=== PATIENT | female | born 1960 | race Caucasian/White ===

== ENCOUNTER → 2024-05-16 | Outpatient (CLI) | payer BC, SELFPAY | END | disposition home or self-care (01) | PROVIDERS: Referring Provider Physician Assistant; Visit Provider Physician Assistant | DX: R39.9 Unspecified symptoms and signs involving the genitourinary system (principal) | CPT/HCPCS: 87086; 87088; 87186 ==

== ENCOUNTER → 2025-09-02 | Outpatient (CLI) | payer BC, SELFPAY ==
--- OUTSIDE RECORDS SUMMARY | 2025-09-02 19:12 | XMS RPT_ITS | CCD ---
Author Organization [facility] Care Team Providers Care Hepatologist Name Role Phone IRVIN QUEEN DO Primary Care Physician FERDINAND SCALES PA-C Attending UnavailIRVIN De La Rosa DO Primary Care Unavailable IRVIN QUEEN DO Attending Unavailable IRVIN QUEEN DO Primary Care Unavailable IRVIN QUEEN DO Attending Unavailable IRVIN QUEEN DO Primary Care Unavailable Lakeisha PA, Kaleb Attending Unavailable Lakeisha SETH, Kaleb Referring Unavailable Lakeisha SETH, Kaleb Attending Unavailable Lakeisha PA, Kaleb Primary Care Unavailable FERDINAND SCALES PA-C Attending Unavailab IRVIN Jain DO Primary Care Unavailable IRVIN QUEEN DO Attending Unavailable IRVIN QUEEN DO Primary Care Unavailable IRVIN QUEEN DO Attending Unavailable IRVIN QUEEN DO Primary Care Unavailable Allergies Allergy Classification Reported Allergen(s) Allergy Type Date of Onset Reaction(s) Facility (7 sources) Procaine; Translations: [procaine] Drug Allergy [facility] Medications Current Medications Medication Drug Class(es) Dates Sig (Normalized) Sig (Original) naproxen sodium 220 mg oral capsule (3 sources) Nonsteroidal Anti-inflammatory Drug Start: 06-07-2019 Aleve 220 mg oral capsule Dose : 440 mg = 2 cap(s), Oral, Once, 0 Refill(s) Start Date: 06/07/19 Status: Ordered simvastatin 40 mg oral tablet (7 sources) HMG-CoA Reductase Inhibitor Start: 06-08-2024 simvastatin 40 mg oral tablet Dose : 40 mg = 1 tab(s), Oral, qDay, # 90 tab(s), 3 Refill(s), Pharmacy: [facility], 157, cm, 06/08/24 7:58:00 EDT, Height, kg, 06/08/24 7:58:00 EDT, Dosing Weight Start Date: 06/08/24 Status: Ordered Medication Dispense Status: Completed Quantity: 90.0 Unit: tab(s) Total Allowed Fills: 4 Fills Dispensed: 0 Start: 05-07-2022 simvastatin 40 mg oral tablet Dose : 40 mg = 1 tab(s), Oral, qDay, # 90 tab(s), 3 Refill(s), Pharmacy: [facility], 158, cm, 05/07/22 9:24:00 EDT, Height, kg, 05/07/22 9:24:00 EDT, Dosing Weight Start Date: 05/07/22 Status: Ordered Problems Problem Classification Problem Date Documented Date Episodic/Chronic Chronic kidney disease (8 sources) Chronic kidney disease stage 3; Translations: [Chronic kidney disease, stage 3 unspecified] 05-07-2022 Chronic Disorders of lipid metabolism (8 sources) Mixed hyperlipidemia; Translations: [Mixed hyperlipidemia] 05-07-2022 Chronic Genitourinary symptoms and ill-defined conditions (3 sources) Unspecified symptoms and signs involving the genitourinary system; Translations: [Dysuria] Onset: 06-10-2024 Episodic Other nutritional; endocrine; and metabolic disorders (7 sources) Severe obesity 05-07-2022 Chronic Other nutritional; endocrine; and metabolic disorders (1 source) Morbid obesity; Translations: [Morbid (severe) obesity due to excess calories] Chronic Other nutritional; endocrine; and metabolic disorders (6 sources) Body mass index 40+ - severely obese 07-15-2023 Chronic Other screening for suspected conditions (not mental disorders or infectious disease) (4 sources) Cardiac disease monitoring status; Translations: [Encounter for screening for cardiovascular disorders] Episodic Other upper respiratory infections (1 source) Acute upper respiratory infection 09-14-2022 Episodic Unclassified (1 source) Patient encounter status 06-14-2025 Results Test Name Value Interpretation Reference Range Facility No Panel Informationon 06-14 Culture Urine 10,000 - 50,000 cfu/ml Multiple bacterial morphotypes present. Probable Contamination. Suggest recollection if clinically indicated. [facility] .Auto Diffon 06-08-2025 Basophil, Absolute 0.0 10 3/mcL Normal 0.0-0.3 [facility] Comment on above: Performed By: #### C MP, ANEU, LIPID, FT4, TSH, ADIFF, CBC, GFR, A1C, LDLDCT #### [address] [address] Basophils/100 WBC (Bld) 0.9 % Normal 0.0-2.5 [facility] Comment on above: Performed By: #### C MP, ANEU, LIPID, FT4, TSH, ADIFF, CBC, GFR, A1C, LDLDCT #### [address] [address] Eosinophil, Absolute 0.1 10 3/mcL Normal 0.0-0.[address] [facility] Comment on above: Performed By: #### C MP, ANEU, LIPID, FT4, TSH, ADIFF, CBC, GFR, A1C, LDLDCT #### [address] [address] Eosinophils/100 WBC (Bld) 2.1 % Normal 0.0-6.0 [facility] Comment on above: Performed By: #### C MP, ANEU, LIPID, FT4, TSH, ADIFF, CBC, GFR, A1C, LDLDCT #### [address] [address] Lymphocyte, Absolute 1.6 10 3/mcL Normal 0.9-4.[address] [facility] Comment on above: Performed By: #### C MP, ANEU, LIPID, FT4, TSH, ADIFF, CBC, GFR, A1C, LDLDCT #### [address] [address] Lymphocytes/100 WBC (Bld) 36.8 % Normal 20.0-40.0 [facility] Comment on above: Performed By: #### C MP, ANEU, LIPID, FT4, TSH, ADIFF, CBC, GFR, A1C, LDLDCT #### [address] [address] Monocyte, Absolute 0.5 10 3/mcL Normal 0.1-1.4 [facility] Comment on above: Performed By: #### C MP, ANEU, LIPID, FT4, TSH, ADIFF, CBC, GFR, A1C, LDLDCT #### [address] [place], [place] [address] Monocytes/100 WBC (Bld) 10.7 % Normal 2.0-13.0 [facility] Comment on above: Performed By: #### C MP, ANEU, LIPID, FT4, TSH, ADIFF, CBC, GFR, A1C, LDLDCT #### [address] [place], [place] [address] Neutrophils/100 WBC (Bld) 49.5 % Low 50.0-75.0 [facility] Comment on above: Performed By: #### C MP, ANEU, LIPID, FT4, TSH, ADIFF, CBC, GFR, A1C, LDLDCT #### [address] [address] .GFRon 06-08-2025 Estimated Glomerular Filtration Rate 68 ml/min/1.73sqm Normal [facility] Comment on above: Result Comment: Stages of Chronic Kidney Disease (CKD) Stage Description eGFR(ml/min/1.73 sq.m.) CKD 1 Normal kidney function or >=90 normal kindney function with possible kidney damage (ex. Proteinuria) CKD 2 Kidney damage with mild loss 60-89 of kidney function CKD 3a Mild to moderate loss of kidney 45-59 function CKD 3b Moderate to severe loss of 30-44 of kindey function CKD 4 Severe loss of kidney function 15-29 CKD 5 Kidney failure <15 Note: (go live 2024) the eGFR calculation was updated to the 2020 CKD-EPI creatinine equation without a race factor to calculate the eGFR results. Performed By: #### C MP, ANEU, LIPID, FT4, TSH, ADIFF, CBC, GFR, A1C, LDLDCT #### [address] [place], [place] [address] .NEUABSon 06-08-2025 Neutrophil, Absolute 2.2 10 3/mcL Low 2.3-8.[address] [facility] Comment on above: Performed By: #### C MP, ANEU, LIPID, FT4, TSH, ADIFF, CBC, GFR, A1C, LDLDCT #### [address] [place], [place] [address] A1Con 06-08-2025 Glucose [Mass/Vol] 108 mg/dL Normal [facility] Comment on above: Result Comment: Millie mated Average Glucose calculated by equation ((28.7xA1C)-46.7) Estimated average glucose (eAG) is a calculated value from Hemoglobin A1C and is community representative of the average blood glucose level in the last 2-3 month period. Normal range: less than 114 mg/dL Performed By: #### C MP, ANEU, LIPID, FT4, TSH, ADIFF, CBC, GFR, A1C, LDLDCT ####[address] [address] HbA1c (Bld) [Mass fraction] 5.4 % Normal 4.3-6.4 [facility] Comment on above: Performed By: #### C MP, ANEU, LIPID, FT4, TSH, ADIFF, CBC, GFR, A1C, LDLDCT ####[address] [address] CBCon 06-08-2025 Erythrocyte distribution width (RBC) [Ratio] 12.3 % Normal 11.5-15.5 [facility] Comment on above: Performed By: #### C MP, ANEU, LIPID, FT4, TSH, ADIFF, CBC, GFR, A1C, LDLDCT #### [address] [address] Hematocrit (Bld) [Volume fraction] 38.5 % Normal 34.0-46.0 [facility] Comment on above: Performed By: #### C MP, ANEU, LIPID, FT4, TSH, ADIFF, CBC, GFR, A1C, LDLDCT #### [address] [address] Hgb 13.3 G/dL Normal 12.0-16.0 [facility] Comment on above: Performed By: #### C MP, ANEU, LIPID, FT4, TSH, ADIFF, CBC, GFR, A1C, LDLDCT #### [address] [address] MCH (RBC) [Entitic mass] 29.2 pg Normal 27.0-33.0 [facility] Comment on above: Performed By: #### C MP, ANEU, LIPID, FT4, TSH, ADIFF, CBC, GFR, A1C, LDLDCT #### [address] [address] MCHC 34.5 G/dL Normal 32.0-36.0 [facility] Comment on above: Performed By: #### C MP, ANEU, LIPID, FT4, TSH, ADIFF, CBC, GFR, A1C, LDLDCT #### [address] [address] MCV (RBC) [Entitic vol] 84.7 fL Normal 80.0-99.0 [facility] Comment on above: Performed By: #### C MP, ANEU, LIPID, FT4, TSH, ADIFF, CBC, GFR, A1C, LDLDCT #### [address] [address] Platelet 325 10 3/mcL Normal 150-450 [facility] Comment on above: Performed By: #### C MP, ANEU, LIPID, FT4, TSH, ADIFF, CBC, GFR, A1C, LDLDCT #### [address] [address] Platelet mean volume (Bld) [Entitic vol] 8.0 fL Normal 6.6-10.5 [facility] Comment on above: Performed By: #### C MP, ANEU, LIPID, FT4, TSH, ADIFF, CBC, GFR, A1C, LDLDCT #### [address] [address] RBC 4.55 10 6/mcL Normal 4.10-5.30 [facility] Comment on above: Performed By: #### C MP, ANEU, LIPID, FT4, TSH, ADIFF, CBC, GFR, A1C, LDLDCT #### [address] [address] WBC 4.5 10 3/mcL Normal 4.5-10.8 [facility] Comment on above: Performed By: #### C MP, ANEU, LIPID, FT4, TSH, ADIFF, CBC, GFR, A1C, LDLDCT #### [address] [address] CMPon 06-08-2025 Albumin Level 3.6 G/dL Normal 3.4-4.8 [facility] Comment on above: Performed By: #### C MP, ANEU, LIPID, FT4, TSH, ADIFF, CBC, GFR, A1C, LDLDCT #### [address] [address] Albumin/Globulin [Mass ratio] 0.9 {ratio} Low 1.1-2.5 [facility] Comment on above: Performed By: #### C MP, ANEU, LIPID, FT4, TSH, ADIFF, CBC, GFR, A1C, LDLDCT #### [address] [address] ALP [Catalytic activity/Vol] 69 U/L Normal 40-135 [facility] Comment on above: Performed By: #### C MP, ANEU, LIPID, FT4, TSH, ADIFF, CBC, GFR, A1C, LDLDCT #### [address] [address] ALT [Catalytic activity/Vol] 23 U/L Normal 14-59 [facility] Comment on above: Performed By: #### C MP, ANEU, LIPID, FT4, TSH, ADIFF, CBC, GFR, A1C, LDLDCT #### [address] [address] AST [Catalytic activity/Vol] 17 U/L Normal 10-40 [facility] Comment on above: Performed By: #### C MP, ANEU, LIPID, FT4, TSH, ADIFF, CBC, GFR, A1C, LDLDCT #### [address] [address] Bili Total 0.6 mg/dL Normal 0.2-1.0 [facility] Comment on above: Result Comment: Use of this assay is not recommended for patients undergoing treatment with eltrombopag due to the potential for falsely elevated results. Performed By: #### C MP, ANEU, LIPID, FT4, TSH, ADIFF, CBC, GFR, A1C, LDLDCT #### [address] [address] BUN/Creatinine Ratio 26 ratio Normal 7-27 [facility] Comment on above: Performed By: #### C MP, ANEU, LIPID, FT4, TSH, ADIFF, CBC, GFR, A1C, LDLDCT #### [address] [address] Calcium [Mass/Vol] 9.5 mg/dL Normal 8.4-10.2 [facility] Comment on above: Performed By: #### C MP, ANEU, LIPID, FT4, TSH, ADIFF, CBC, GFR, A1C, LDLDCT #### [address] [address] Chloride [Moles/Vol] 105 mmol/L Normal 98-107 [facility] Comment on above: Performed By: #### C MP, ANEU, LIPID, FT4, TSH, ADIFF, CBC, GFR, A1C, LDLDCT #### [address] [address] CO2 [Moles/Vol] 28 mmol/L Normal 23-31 [facility] Comment on above: Performed By: #### C MP, ANEU, LIPID, FT4, TSH, ADIFF, CBC, GFR, A1C, LDLDCT #### [address] [address] Creatinine [Mass/Vol] 0.94 mg/dL Normal 0.51-0.95 [facility] Comment on above: Performed By: #### C MP, ANEU, LIPID, FT4, TSH, ADIFF, CBC, GFR, A1C, LDLDCT #### [address] [address] Electrolyte Balance 6.0 mEq/L Normal 4.0-15.0 [facility] Comment on above: Performed By: #### C MP, ANEU, LIPID, FT4, TSH, ADIFF, CBC, GFR, A1C, LDLDCT #### [address] [address] Globulin 4.1 G/dL Normal 2.7-4.4 [facility] Comment on above: Performed By: #### C MP, ANEU, LIPID, FT4, TSH, ADIFF, CBC, GFR, A1C, LDLDCT #### [address] [address] Glucose [Mass/Vol] 103 mg/dL Normal 80-115 [facility] Comment on above: Performed By: #### C MP, ANEU, LIPID, FT4, TSH, ADIFF, CBC, GFR, A1C, LDLDCT #### [address] [address] Potassium [Moles/Vol] 4.1 mmol/L Normal 3.5-5.1 [facility] Comment on above: Performed By: #### C MP, ANEU, LIPID, FT4, TSH, ADIFF, CBC, GFR, A1C, LDLDCT #### [address] [address] Sodium [Moles/Vol] 139 mmol/L Normal 136-145 [facility] Comment on above: Performed By: #### C MP, ANEU, LIPID, FT4, TSH, ADIFF, CBC, GFR, A1C, LDLDCT #### [address] [address] Total Protein 7.7 G/dL Normal 6.4-8.2 [facility] Comment on above: Performed By: #### C MP, ANEU, LIPID, FT4, TSH, ADIFF, CBC, GFR, A1C, LDLDCT #### [address] [address] Urea nitrogen [Mass/Vol] 24 mg/dL High 7-18 [facility] Comment on above: Performed By: #### C MP, ANEU, LIPID, FT4, TSH, ADIFF, CBC, GFR, A1C, LDLDCT #### [address] [place], [place] [address] Direct LDLon 06-08-2025 LDL Cholesterol Direct 95 mg/dL Normal <[address] [facility] Comment on above: Result Comment: <100 mg/dL, Optimal 100-129 mg/dL, Near optimal/above optimal 130-159 mg/dL, Borderline high 160-189 mg/dL, High >189 mg/dL, Very high Secondary prevention optimal LDL Cholesterol levels are recommended to be <70 mg/dL Performed By: [facility] indic[address] [place] [address] Counter Maker: Maurice Weems III, M.D. CLIA#: [id number] Performed By: #### C MP, ANEU, LIPID, FT4, TSH, ADIFF, CBC, GFR, A1C, LDLDCT ####[address] [place], [place] [address] VLDL Cholesterol See Below Normal [facility] Comment on above: Result Comment: Test not indicated. Performed By: [facility] [place] [address] Counter Maker: Maurice Weems III, M.D. CLIA#: [id number] Performed By: #### C MP, ANEU, LIPID, FT4, TSH, ADIFF, CBC, GFR, A1C, LDLDCT ####[address] [place], [place] [address] FT4on 06-08-2025 Free T4 [Mass/Vol] 0.96 ng/dL Normal 0.76-1.46 [facility] Comment on above: Performed By: #### C MP, ANEU, LIPID, FT4, TSH, ADIFF, CBC, GFR, A1C, LDLDCT #### [address] [place], [place] [address] LABORATORYOrdered By: Jose J Prabhakar on 06-08-2025 Albumin DL <= 20 mg/L (U) [Mass/Vol] 16.0 mg/L Invalid Interpretation Code AO ADM SS Albumin/Creatinine DL <= 20 mg/L (U) [Mass ratio] 6 mg/G Normal 0 - 30 mg/G AO Chemistry S Creatinine (U) [Mass/Vol] 246.7 mg/dL Invalid Interpretation Code AO ADM SS Cholesterol [Mass/Vol] 159 mg/dL Normal 0 - 200 mg/dL AO ADM SS Comment on above: Interpretive Data: C holesterol Reference Interval: Less than 200 Desirable 200-239 Borderline high risk 240 and above High risk Cholesterol in HDL [Mass/Vol] 32 mg/dL Low 40 - 60 mg/dL AO ADM SS Cholesterol in LDL [Mass/Vol] 97 mg/dL Normal 0 - 130 mg/dL AO ADM SS Triglyceride [Mass/Vol] 152 mg/dL High 0 - 150 mg/dL AO ADM SS Comment on above: Interpretive Data: T riglyceride Reference Interval: Less than 150 Normal 150-199 Borderline high risk 200-499 High risk 500 or higher Very high risk LABORATORYOrdered By: SYSTEM SYSTEM on 06-08-2025 Albumin BCP dye [Mass/Vol] 3.6 G/dL Normal 3.4 - 4.8 G/dL AO ADM SS Albumin/Globulin [Mass ratio] 0.9 {ratio} Low 1.1 - 2.5 ratio AO ADM SS ALP [Catalytic activity/Vol] 69 U/L Normal 40 - 135 U/L AO ADM SS ALT With P-5'-P [Catalytic activity/Vol] 23 U/L Normal 14 - 59 U/L AO ADM SS AST With P-5'-P [Catalytic activity/Vol] 17 U/L Normal 10 - 40 U/L AO ADM SS Basophils (Bld) [#/Vol] 0.0 103/mcL Normal 0.0 - 0.3 10^3/mcL AO Workflow SS Basophils/100 WBC (Bld) 0.9 % Normal 0.0 - 2.5 % AO Workflow SS Bilirubin [Mass/Vol] 0.6 mg/dL Normal 0.2 - 1 .0 mg/dL AO ADM SS Comment on above: Interpretive Data: U se of this assay is not recommended for patients undergoing treatment with eltrombopag due to the potential for falsely elevated results. Calcium [Mass/Vol] 9.5 mg/dL Normal 8.4 - 10. 2 mg/dL AO ADM SS Chloride [Moles/Vol] 105 mmol/L Normal 98 - 10 7 mmol/L AO ADM SS CO2 [Moles/Vol] 28 mmol/L Normal 23 - 31 mmol/L AO ADM SS Creatinine [Mass/Vol] 0.94 mg/dL Normal 0.51 - 0.95 mg/dL AO ADM SS Electrolyte Balance 6.0 mEq/L Normal 4.0 - 15 .0 mEq/L AO ADM SS Eosinophil, Absolute 0.1 103/mcL Normal 0.0 - 0 .7 10^3/mcL AO Workflow SS Eosinophils/100 WBC (Bld) 2.1 % Normal 0.0 - 6.0 % AO Workflow SS Erythrocyte distribution width (RBC) [Ratio] 12.3 % Normal 11.5 - 15.5 % AO Workflow SS Estimated Glomerular Filtration Rate 68 ml/min/1.73sqm Invalid Interpretation Code AO Chemistry S Comment on above: Interpretive Data: Stages of Chronic Kidney Disease (CKD) Stage Description eGFR(ml/min/1.73 sq.m.) CKD 1 Normal kidney function or >=90 normal kindney function with possible kidney damage (ex. Proteinuria) CKD 2 Kidney damage with mild loss 60-89 of kidney function CKD 3a Mild to moderate loss of kidney 45-59 function CKD 3b Moderate to severe loss of 30-44 of kindey function CKD 4 Severe loss of kidney function 15-29 CKD 5 Kidney failure <15 Note: (go live 2024) the eGFR calculation was updated to the 2020 CKD-EPI creatinine equation without a race factor to calculate the eGFR results. Free T4 [Mass/Vol] 0.96 ng/dL Normal 0.76 - 1. 46 ng/dL AO ADM SS Globulin 4.1 G/dL Normal 2.7 - 4.4 G/dL AO ADM SS Glucose [Mass/Vol] 103 mg/dL Normal 80 - 115 mg/dL AO ADM SS Glucose [Mass/Vol] 108 mg/dL Invalid Interpretation Code AO Chemistry S Comment on above: Interpretive Data: E stimated average glucose (eAG) is a calculated value from Hemoglobin A1C and is community representative of the average blood glucose level in the last 2-3 month period. Normal range: less than 114 mg/dL HbA1c (Bld) [Mass fraction] 5.4 % Normal 4.3 - 6.4 % AO ADM SS Hematocrit (Bld) [Volume fraction] 38.5 % Normal 34.0 - 46.0 % AO Workflow SS Hemoglobin (Bld) [Mass/Vol] 13.3 G/dL Normal 12.0 - 16.0 G/dL AO Workflow SS Lymphocytes (Bld) [#/Vol] 1.6 103/mcL Normal 0.9 - 4.3 10^3/mcL AO Workflow SS Lymphocytes/100 WBC (Bld) 36.8 % Normal 20.0 - 40.0 % AO Workflow SS MCH (RBC) [Entitic mass] 29.2 pg Normal 27.0 - 33.0 pg AO Workflow SS MCHC 34.5 G/dL Normal 32.0 - 36.0 G/dL AO Workflow SS MCV (RBC) [Entitic vol] 84.7 fL Normal 80.0 - 99.0 fL AO Workflow SS Monocytes (Bld) [#/Vol] 0.5 103/mcL Normal 0.1 - 1.4 10^3/mcL AO Workflow SS Monocytes/100 WBC (Bld) 10.7 % Normal 2.0 - 13.0 % AO Workflow SS Neutrophils (Bld) [#/Vol] 2.2 103/mcL Low 2.3 - 8.1 10^3/mcL AO Workflow SS Neutrophils/100 WBC (Bld) 49.5 % Low 50.0 - 75.0 % AO Workflow SS Platelet mean volume (Bld) [Entitic vol] 8.0 fL Normal 6.6 - 10.5 fL AO Workflow SS Platelets (Bld) [#/Vol] 325 103/mcL Normal 150 - 450 10^3/mcL AO Workflow SS Potassium [Moles/Vol] 4.1 mmol/L Normal 3.5 - 5.1 mmol/L AO ADM SS Protein [Mass/Vol] 7.7 G/dL Normal 6.4 - 8.2 G/dL AO ADM SS RBC (Bld) [#/Vol] 4.55 106/mcL Normal 4.10 - 5.3 0 10^6/mcL AO Workflow SS Sodium [Moles/Vol] 139 mmol/L Normal 136 - 145 mmol/L AO ADM SS TSH Qn 1.82 m[IU]/L Normal 0.36 - 3.74 mcIU/mL AO ADM SS Urea nitrogen [Mass/Vol] 24 mg/dL High 7 - 18 mg/dL AO ADM SS Urea nitrogen/Creatinine [Mass ratio] 26 ratio Normal 7 - 27 ratio AO ADM SS WBC (Bld) [#/Vol] 4.5 103/mcL Normal 4.5 - 10.8 10^3/mcL AO Workflow SS LABORATORYOrdered By: SIGRID HERNANDEZ CONTRIBUTOR_SYSTEM on 06-08-2025 LDL Cholesterol Direct 95 mg/dL Invalid Interpretation Code <100 AO Sendouts SS Comment on above: Result Comment: <100 mg/dL, Optimal 100-129 mg/dL, Near optimal/above optimal 130-159 mg/dL, Borderline high 160-189 mg/dL, High >189 mg/dL, Very high Secondary prevention optimal LDL Cholesterol levels are recommended to be <70 mg/dL Performed By: [facility] indico [address] [place] [address] Counter Maker: Maurice Weems III, M.D. CLIA#: [id number] VLDL Cholesterol See Below Invalid Interpretation Code AO Sendouts SS Comment on above: Result Comment: Test not indicated. Performed By: [facility] indico [address] [place] [address] Counter Maker: Maurice Weems III, M.D. CLIA#: [id number] LIPIDon 06-08-2025 Cholesterol [Mass/Vol] 159 mg/dL Normal 0-[address] [facility] Comment on above: Result Comment: Chol esterol Reference Interval: Less than 200 Desirable 200-239 Borderline high risk 240 and above High risk Performed By: #### C MP, ANEU, LIPID, FT4, TSH, ADIFF, CBC, GFR, A1C, LDLDCT #### [address] [place], [place] [address] Cholesterol in HDL [Mass/Vol] 32 mg/dL Low 40-60 [facility] Comment on above: Performed By: #### C MP, ANEU, LIPID, FT4, TSH, ADIFF, CBC, GFR, A1C, LDLDCT #### [address] [place], [place] [address] Cholesterol in LDL [Mass/Vol] 97 mg/dL Normal 0-130 [facility] Comment on above: Performed By: #### C MP, ANEU, LIPID, FT4, TSH, ADIFF, CBC, GFR, A1C, LDLDCT #### [address] [place], [place] [address] Triglyceride [Mass/Vol] 152 mg/dL High 0-150 [facility] Comment on above: Result Comment: Trig lyceride Reference Interval: Less than 150 Normal 150-199 Borderline high risk 200-499 High risk 500 or higher Very high risk Performed By: #### C MP, ANEU, LIPID, FT4, TSH, ADIFF, CBC, GFR, A1C, LDLDCT #### [address] [address] MALBRon 06-08-2025 U Creatinine 246.7 mg/dL Normal [facility] Comment on above: Performed By: #### M ALBR ####[address] [address] U Microalb 16.0 mg/L Normal [facility] Comment on above: Performed By: #### M ALBR ####[address] [place], [place] [address] U Ratio Alb/Cre 6 mg/G Normal 0-30 [facility] Comment on above: Performed By: #### M ALBR ####[address] [address] TSHon 06-08-2025 TSH Qn 1.82 m[IU]/L Normal 0.36-3.74 [facility] Comment on above: Performed By: #### C MP, ANEU, LIPID, FT4, TSH, ADIFF, CBC, GFR, A1C, LDLDCT #### [address] [address] MA MAMMOGRAM SCREENING BILAT ERAL W/TOMOon 08-22-2024 MA MAMMOGRAM SCREENING BILATERAL W/JETT ORIGINAL FROM: [place] [address] PROCEDURE FOR: CANDIDA LLANOS [address] [place] [address] Home: PID#: [id number] Exam#: [id number] : 1960 Age: 63 TO: IRVIN QUEEN [address] [place] [address] Fax: NO FAX EXAMINATION: SCREENING DIGITAL BILATERAL MAMMOGRAM WITH TOMOSYNTHESIS, 08/22/2024 2:54 pm TECHNIQUE: Screening mammography of the bilateral breasts was performed with tomosynthesis. 2D standard and 3D tomosynthesis combination imaging performed through both breasts in the MLO and CC projection. Computer aided detection was utilized in the interpretation of this exam. COMPARISON: 08/04/2023, 05/26/2022 HISTORY: Breast cancer screening. FINDINGS: BREAST DENSITY: There are scattered areas of fibroglandular density. There are no significant masses or calcifications. IMPRESSION: No mammographic evidence of malignancy. Continued screening with annual mammograms is recommended. [facility] risk calculations, generated with the history provided, report this patient's 10 year risk and lifetime risk for developing breast cancer at 3.3% and 7.5%, respectively. Based on this assessment tool, if the patient's calculated lifetime risk is below 20%, then the patient is considered at average risk for developing breast cancer. If the patient's calculated lifetime risk is at or above 20%, then the patient is considered high risk for developing breast cancer and may be a candidate for supplemental breast MRI screening in addition to annual mammographic screening per the [employer]. BIRADS: BI-RADS: 1: Negative RECALL: 1 year screening RECALL TYPE: mammo LETTER SENT: Normal BI-RADS 1 and 2 Interpreted by: Gera Hunter MD Preliminary Report By: Gera Hunter MD Electronically signed By Gera Hunter MD Dictated Date: 08/22/2024 6:57:58 PM Prelim Date: 08/22/2024 7:00:15 PM Sign Date: 08/22/2024 7:00:15 PM Ordering Provider: FERDINAND SCALES Film Crew Member: JAJA HERNANDEZ RT(R)(M)(CT) letter sent: Normal BI-RADS 1 and 2 Mammogram BI-RADS: 1 Negative Normal [facility] .Auto Diffon 06-08-2024 Basophil, Absolute 0.0 10 3/mcL Normal 0.0-0.2 On license of [facility] ([place]) Comment on above: Performed By: #### V IDH, GFR, A1C, ANEU, CMP, CBC, ADIFF, LIPID #### [place] [id number] Basophils/100 WBC (Bld) 0.6 % Normal 0.0-2.5 [facility] ([place]) Comment on above: Performed By: #### V IDH, GFR, A1C, ANEU, CMP, CBC, ADIFF, LIPID #### [address] [address] Eosinophil, Absolute 0.1 10 3/mcL Normal 0.0-0.4 [facility] ([place]) Comment on above: Performed By: #### V IDH, GFR, A1C, ANEU, CMP, CBC, ADIFF, LIPID #### [address] [address] Eosinophils/100 WBC (Bld) 2.4 % Normal 0.0-7.0 [facility] ([place]) Comment on above: Performed By: #### V IDH, GFR, A1C, ANEU, CMP, CBC, ADIFF, LIPID #### [address] [address] Lymphocyte, Absolute 1.8 10 3/mcL Normal 0.8-3.9 [facility] ([place]) Comment on above: Performed By: #### V IDH, GFR, A1C, ANEU, CMP, CBC, ADIFF, LIPID #### [address] [address] Lymphocytes/100 WBC (Bld) 35.6 % Normal 10.0-50.0 [facility] ([place]) Comment on above: Performed By: #### V IDH, GFR, A1C, ANEU, CMP, CBC, ADIFF, LIPID #### [address] [address] Monocyte, Absolute 0.6 10 3/mcL Normal 0.2-1.0 On license of [facility] ([place]) Comment on above: Performed By: #### V IDH, GFR, A1C, ANEU, CMP, CBC, ADIFF, LIPID #### [address] [address] Monocytes/100 WBC (Bld) 11.6 % Normal 1.7-13.0 [facility] ([place]) Comment on above: Performed By: #### V IDH, GFR, A1C, ANEU, CMP, CBC, ADIFF, LIPID #### [address] [address] Neutrophils/100 WBC (Bld) 49.8 % Normal 37.0-80.0 [facility] ([place]) Comment on above: Performed By: #### V IDH, GFR, A1C, ANEU, CMP, CBC, ADIFF, LIPID #### [address] [address] .GFRon 06-08-2024 GFR Non- 56 ml/min/1.73sqm Normal [facility] ([place]) Comment on above: Result Comment: GFR Population mean for , Non- Americans Ages 20-29 = 116 mL/min/1.73 sq.m. Ages 30-39 = 107 mL/min/1.73 sq.m. Ages 40-49 = 99 mL/min/1.73 sq.m. Ages 50-59 = 93 mL/min/1.73 sq.m. Ages 60-69 = 85 mL/min/1.73 sq.m. Ages 70+ = 75 mL/min/1.73 sq.m. Chronic Kidney Disease: Less than 60 mL/min/1.73 square meters End Stage Renal Disease: Less than 15 mL/min/1.73 square meters Performed By: #### V IDH, ADIFF, LIPID, CBC, ANEU, A1C, GFR, CMP #### [address] [address] GFR 68 ml/min/1.73sqm Normal [facility] ([place]) Comment on above: Result Comment: GFR Population mean for , Non- Americans Ages 20-29 = 116 mL/min/1.73 sq.m. Ages 30-39 = 107 mL/min/1.73 sq.m. Ages 40-49 = 99 mL/min/1.73 sq.m. Ages 50-59 = 93 mL/min/1.73 sq.m. Ages 60-69 = 85 mL/min/1.73 sq.m. Ages 70+ = 75 mL/min/1.73 sq.m. Chronic Kidney Disease: Less than 60 mL/min/1.73 square meters End Stage Renal Disease: Less than 15 mL/min/1.73 square meters Performed By: #### V IDH, ADIFF, LIPID, CBC, ANEU, A1C, GFR, CMP #### [address] [address] .NEUABSon 06-08-2024 Neutrophil, Absolute 2.5 10 3/mcL Low 2.9-6.2 [facility] ([place]) Comment on above: Performed By: #### V IDH, ADIFF, LIPID, CBC, ANEU, A1C, GFR, CMP #### [address] [address] A1Con 06-08-2024 Glucose [Mass/Vol] 108 mg/dL Normal [facility] ([place]) Comment on above: Result Comment: Millie mated Average Glucose calculated by equation ((28.7xA1C)-46.7) Estimated average glucose (eAG) is a calculated value from Hemoglobin A1C and is community representative of the average blood glucose level in the last 2-3 month period. Normal range: less than 114 mg/dL Performed By: #### V IDH, ADIFF, LIPID, CBC, ANEU, A1C, GFR, CMP #### [address] [address] HbA1c (Bld) [Mass fraction] 5.4 % Normal 4.3-6.4 [facility] ([place]) Comment on above: Performed By: #### V IDH, ADIFF, LIPID, CBC, ANEU, A1C, GFR, CMP #### [address] [address] CBCon 06-08-2024 Erythrocyte distribution width (RBC) [Ratio] 12.4 % Normal 11.5-14.5 [facility] ([place]) Comment on above: Performed By: #### V IDH, GFR, A1C, ANEU, CMP, CBC, ADIFF, LIPID #### [address] [address] Hematocrit (Bld) [Volume fraction] 38.6 % Normal 37.0-47.0 [facility] ([place]) Comment on above: Performed By: #### V IDH, GFR, A1C, ANEU, CMP, CBC, ADIFF, LIPID #### [address] [address] Hgb 13.2 G/dL Normal 12.0-16.0 [facility] ([place]) Comment on above: Performed By: #### V IDH, GFR, A1C, ANEU, CMP, CBC, ADIFF, LIPID #### [address] [address] MCH (RBC) [Entitic mass] 29.5 pg Normal 27.0-31.2 [facility] ([place]) Comment on above: Performed By: #### V IDH, GFR, A1C, ANEU, CMP, CBC, ADIFF, LIPID #### [place] [address] MCHC 34.2 G/dL Normal 33.0-37.0 [facility] ([place] Comment on above: Performed By: #### V IDH, GFR, A1C, ANEU, CMP, CBC, ADIFF, LIPID #### [place] [id number] MCV (RBC) [Entitic vol] 86.3 fL Normal 80.0-94.0 [facility] ([place]) Comment on above: Performed By: #### V IDH, GFR, A1C, ANEU, CMP, CBC, ADIFF, LIPID #### [address] [address] Platelet 306 10 3/mcL Normal 130-400 [facility] ([place]) Comment on above: Performed By: #### V IDH, GFR, A1C, ANEU, CMP, CBC, ADIFF, LIPID #### [address] [address] Platelet mean volume (Bld) [Entitic vol] 7.3 fL Low 7.4-10.4 [facility] ([place] Comment on above: Performed By: #### V IDH, GFR, A1C, ANEU, CMP, CBC, ADIFF, LIPID #### [place] [id number] RBC 4.47 10 6/mcL Normal 4.20-5.40 [facility] ([place]) Comment on above: Performed By: #### V IDH, GFR, A1C, ANEU, CMP, CBC, ADIFF, LIPID #### [address] [address] WBC 5.0 10 3/mcL Normal 4.6-10.8 [facility] ([place] Comment on above: Performed By: #### V IDH, GFR, A1C, ANEU, CMP, CBC, ADIFF, LIPID #### [address] [address] CMPon 06-08-2024 Albumin Level 3.8 G/dL Normal 3.4-4.8 [facility] ([place]) Comment on above: Performed By: #### V IDH, ADIFF, LIPID, CBC, ANEU, A1C, GFR, CMP #### [address] [address] Albumin/Globulin [Mass ratio] 1.0 {ratio} Low 1.1-2.5 [facility] ([place]) Comment on above: Performed By: #### V IDH, ADIFF, LIPID, CBC, ANEU, A1C, GFR, CMP #### [address] [address] ALP [Catalytic activity/Vol] 69 U/L Normal 40-135 [facility] ([place]) Comment on above: Performed By: #### V IDH, ADIFF, LIPID, CBC, ANEU, A1C, GFR, CMP #### [address] [address] ALT [Catalytic activity/Vol] 27 U/L Normal 14-59 [facility] ([place]) Comment on above: Performed By: #### V IDH, ADIFF, LIPID, CBC, ANEU, A1C, GFR, CMP #### [address] [address] AST [Catalytic activity/Vol] 18 U/L Normal 10-40 [facility] ([place]) Comment on above: Performed By: #### V IDH, ADIFF, LIPID, CBC, ANEU, A1C, GFR, CMP #### [address] [address] Bili Total 0.6 mg/dL Normal 0.2-1.0 [facility] ([place]) Comment on above: Result Comment: Use of this assay is not recommended for patients undergoing treatment with eltrombopag due to the potential for falsely elevated results. Performed By: #### V IDH, ADIFF, LIPID, CBC, ANEU, A1C, GFR, CMP #### [address] [address] BUN/Creatinine Ratio 17 ratio Normal 7-27 On license of [facility] ([place]) Comment on above: Performed By: #### V IDH, ADIFF, LIPID, CBC, ANEU, A1C, GFR, CMP #### [address] [address] Calcium [Mass/Vol] 9.2 mg/dL Normal 8.4-10.2 [facility] ([place]) Comment on above: Performed By: #### V IDH, ADIFF, LIPID, CBC, ANEU, A1C, GFR, CMP #### [address] [address] Chloride [Moles/Vol] 105 mmol/L Normal 98-107 On license of [facility] ([place]) Comment on above: Performed By: #### V IDH, ADIFF, LIPID, CBC, ANEU, A1C, GFR, CMP #### [address] [address] CO2 [Moles/Vol] 30 mmol/L Normal 23-31 [facility] ([place]) Comment on above: Performed By: #### V IDH, ADIFF, LIPID, CBC, ANEU, A1C, GFR, CMP #### [address] [address] Creatinine [Mass/Vol] 1.00 mg/dL Normal 0.55-1.02 [facility] ([place]) Comment on above: Performed By: #### V IDH, ADIFF, LIPID, CBC, ANEU, A1C, GFR, CMP #### [address] [address] Electrolyte Balance 7.0 mEq/L Normal 4.0-15.0 [facility] ([place]) Comment on above: Performed By: #### V IDH, ADIFF, LIPID, CBC, ANEU, A1C, GFR, CMP #### [address] [address] Globulin 3.9 G/dL Normal [facility] ([place]) Comment on above: Performed By: #### V IDH, ADIFF, LIPID, CBC, ANEU, A1C, GFR, CMP #### [address] [address] Glucose [Mass/Vol] 100 mg/dL Normal 80-115 [facility] ([place]) Comment on above: Performed By: #### V IDH, ADIFF, LIPID, CBC, ANEU, A1C, GFR, CMP #### [address] [address] Potassium [Moles/Vol] 4.5 mmol/L Normal 3.5-5.1 [facility] ([place]) Comment on above: Performed By: #### V IDH, ADIFF, LIPID, CBC, ANEU, A1C, GFR, CMP #### [address] [address] Sodium [Moles/Vol] 142 mmol/L Normal 136-145 [facility] ([place] Comment on above: Performed By: #### V IDH, ADIFF, LIPID, CBC, ANEU, A1C, GFR, CMP #### [address] [address] Total Protein 7.7 G/dL Normal 6.4-8.2 [facility] ([place]) Comment on above: Performed By: #### V IDH, ADIFF, LIPID, CBC, ANEU, A1C, GFR, CMP #### [address] [address] Urea nitrogen [Mass/Vol] 17 mg/dL Normal 7-18 [facility] ([place]) Comment on above: Performed By: #### V IDH, ADIFF, LIPID, CBC, ANEU, A1C, GFR, CMP #### [address] [address] LABORATORYOrdered By: SYSTEM SYSTEM on 06-08-2024 25-hydroxyvitamin D3 [Mass/Vol] 31.7 ng/mL Invalid Interpretation Code AO ADM SS Comment on above: Interpretive Data: I nterpretive Values Based on Total 25(OH) Vitamin D: Deficient <20 ng/mL Insufficient 20 - <30 ng/mL Sufficient 30-100 ng/mL Albumin BCP dye [Mass/Vol] 3.8 G/dL Normal 3.4 - 4.8 G/dL AO ADM SS Albumin/Globulin [Mass ratio] 1.0 {ratio} Low 1.1 - 2.5 ratio AO ADM SS ALP [Catalytic activity/Vol] 69 U/L Normal 40 - 135 U/L AO ADM SS ALT With P-5'-P [Catalytic activity/Vol] 27 U/L Normal 14 - 59 U/L AO ADM SS AST With P-5'-P [Catalytic activity/Vol] 18 U/L Normal 10 - 40 U/L AO ADM SS Basophil, Absolute 0.0 103/mcL Normal 0.0 - 0.2 10^3/mcL AO Workflow SS Basophils/100 WBC (Bld) 0.6 % Normal 0.0 - 2.5 % AO Workflow SS Bilirubin [Mass/Vol] 0.6 mg/dL Normal 0.2 - 1 .0 mg/dL AO ADM SS Comment on above: Interpretive Data: U se of this assay is not recommended for patients undergoing treatment with eltrombopag due to the potential for falsely elevated results. Calcium [Mass/Vol] 9.2 mg/dL Normal 8.4 - 10. 2 mg/dL AO ADM SS Chloride [Moles/Vol] 105 mmol/L Normal 98 - 10 7 mmol/L AO ADM SS CO2 [Moles/Vol] 30 mmol/L Normal 23 - 31 mmol/L AO ADM SS Creatinine [Mass/Vol] 1.00 mg/dL Normal 0.55 - 1.02 mg/dL AO ADM SS Electrolyte Balance 7.0 mEq/L Normal 4.0 - 15 .0 mEq/L AO ADM SS Eosinophil, Absolute 0.1 103/mcL Normal 0.0 - 0 .4 10^3/mcL AO Workflow SS Eosinophils/100 WBC (Bld) 2.4 % Normal 0.0 - 7.0 % AO Workflow SS Erythrocyte distribution width (RBC) [Ratio] 12.4 % Normal 11.5 - 14.5 % AO Workflow SS GFR/1.73 sq M.predicted among blacks MDRD (S/P/Bld) [Vol rate/Area] 68 ml/min/1.73sqm Invalid Interpretation Code AO Chemistry S Comment on above: Interpretive Data: GFR Population mean for , Non- Americans Ages 20-29 = 116 mL/min/1.73 sq.m. Ages 30-39 = 107 mL/min/1.73 sq.m. Ages 40-49 = 99 mL/min/1.73 sq.m. Ages 50-59 = 93 mL/min/1.73 sq.m. Ages 60-69 = 85 mL/min/1.73 sq.m. Ages 70+ = 75 mL/min/1.73 sq.m. Chronic Kidney Disease: Less than 60 mL/min/1.73 square meters End Stage Renal Disease: Less than 15 mL/min/1.73 square meters GFR/1.73 sq M.predicted among non-blacks MDRD (S/P/Bld) [Vol rate/Area] 56 ml/min/1.73sqm Invalid Interpretation Code AO Chemistry S Comment on above: Interpretive Data: GFR Population mean for , Non- Americans Ages 20-29 = 116 mL/min/1.73 sq.m. Ages 30-39 = 107 mL/min/1.73 sq.m. Ages 40-49 = 99 mL/min/1.73 sq.m. Ages 50-59 = 93 mL/min/1.73 sq.m. Ages 60-69 = 85 mL/min/1.73 sq.m. Ages 70+ = 75 mL/min/1.73 sq.m. Chronic Kidney Disease: Less than 60 mL/min/1.73 square meters End Stage Renal Disease: Less than 15 mL/min/1.73 square meters Globulin 3.9 G/dL Invalid Interpretation Code AO ADM SS Glucose [Mass/Vol] 100 mg/dL Normal 80 - 115 mg/dL AO ADM SS Glucose [Mass/Vol] 108 mg/dL Invalid Interpretation Code AO Chemistry S Comment on above: Interpretive Data: E stimated average glucose (eAG) is a calculated value from Hemoglobin A1C and is community representative of the average blood glucose level in the last 2-3 month period. Normal range: less than 114 mg/dL HbA1c (Bld) [Mass fraction] 5.4 % Normal 4.3 - 6.4 % AO ADM SS Hematocrit (Bld) [Volume fraction] 38.6 % Normal 37.0 - 47.0 % AO Workflow SS Hemoglobin (Bld) [Mass/Vol] 13.2 G/dL Normal 12.0 - 16.0 G/dL AO Workflow SS Lymphocyte, Absolute 1.8 103/mcL Normal 0.8 - 3 .9 10^3/mcL AO Workflow SS Lymphocytes/100 WBC (Bld) 35.6 % Normal 10.0 - 50.0 % AO Workflow SS MCH (RBC) [Entitic mass] 29.5 pg Normal 27.0 - 31.2 pg AO Workflow SS MCHC 34.2 G/dL Normal 33.0 - 37.0 G/dL AO Workflow SS MCV (RBC) [Entitic vol] 86.3 fL Normal 80.0 - 94.0 fL AO Workflow SS Monocyte, Absolute 0.6 103/mcL Normal 0.2 - 1.0 10^3/mcL AO Workflow SS Monocytes/100 WBC (Bld) 11.6 % Normal 1.7 - 13.0 % AO Workflow SS Neutrophil, Absolute 2.5 103/mcL Low 2.9 - 6 .2 10^3/mcL AO Workflow SS Neutrophils/100 WBC (Bld) 49.8 % Normal 37.0 - 80.0 % AO Workflow SS Platelet mean volume (Bld) [Entitic vol] 7.3 fL Low 7.4 - 10.4 fL AO Workflow SS Platelets (Bld) [#/Vol] 306 103/mcL Normal 130 - 400 10^3/mcL AO Workflow SS Potassium [Moles/Vol] 4.5 mmol/L Normal 3.5 - 5.1 mmol/L AO ADM SS Protein [Mass/Vol] 7.7 G/dL Normal 6.4 - 8.2 G/dL AO ADM SS RBC (Bld) [#/Vol] 4.47 106/mcL Normal 4.20 - 5.4 0 10^6/mcL AO Workflow SS Sodium [Moles/Vol] 142 mmol/L Normal 136 - 145 mmol/L AO ADM SS Urea nitrogen [Mass/Vol] 17 mg/dL Normal 7 - 18 mg/dL AO ADM SS Urea nitrogen/Creatinine [Mass ratio] 17 ratio Normal 7 - 27 ratio AO ADM SS WBC (Bld) [#/Vol] 5.0 103/mcL Normal 4.6 - 10.8 10^3/mcL AO Workflow SS LABORATORYOrdered By: Jose J Prabhakar on 06-08-2024 Cholesterol [Mass/Vol] 180 mg/dL Normal 0 - 200 mg/dL AO ADM SS Comment on above: Interpretive Data: C holesterol Reference Interval: Less than 200 Desirable 200-239 Borderline high risk 240 and above High risk Cholesterol in HDL [Mass/Vol] 33 mg/dL Low 40 - 60 mg/dL AO ADM SS Cholesterol in LDL [Mass/Vol] 112 mg/dL Normal 0 - 130 mg/dL AO ADM SS Triglyceride [Mass/Vol] 175 mg/dL High 0 - 150 mg/dL AO ADM SS Comment on above: Interpretive Data: T riglyceride Reference Interval: Less than 150 Normal 150-199 Borderline high risk 200-499 High risk 500 or higher Very high risk LIPIDon 06-08-2024 Cholesterol [Mass/Vol] 180 mg/dL Normal 0-200 [facility] ([place]) Comment on above: Result Comment: Chol esterol Reference Interval: Less than 200 Desirable 200-239 Borderline high risk 240 and above High risk Performed By: #### V IDH, ADIFF, LIPID, CBC, ANEU, A1C, GFR, CMP #### [address] [address] Cholesterol in HDL [Mass/Vol] 33 mg/dL Low 40-60 [facility] ([place]) Comment on above: Performed By: #### V IDH, ADIFF, LIPID, CBC, ANEU, A1C, GFR, CMP #### [address] [address] Cholesterol in LDL [Mass/Vol] 112 mg/dL Normal 0-130 [facility] ([place]) Comment on above: Performed By: #### V IDH, ADIFF, LIPID, CBC, ANEU, A1C, GFR, CMP #### [address] [address] Triglyceride [Mass/Vol] 175 mg/dL High 0-150 [facility] ([place]) Comment on above: Result Comment: Trig lyceride Reference Interval: Less than 150 Normal 150-199 Borderline high risk 200-499 High risk 500 or higher Very high risk Performed By: #### V IDH, ADIFF, LIPID, CBC, ANEU, A1C, GFR, CMP #### [place] [address] [place], [place] [address] VIDHon 06-08-2024 Vit. D 25-Hydroxy 31.7 ng/mL Normal [facility] ([place]) Comment on above: Result Comment: Inte rpretive Values Based on Total 25(OH) Vitamin D: Deficient <20 ng/mL Insufficient 20 - <30 ng/mL Sufficient 30-100 ng/mL Performed By: #### V IDH, ADIFF, LIPID, CBC, ANEU, A1C, GFR, CMP #### [place] [address] [place], [place] [address] Urine Cultureon 05-18-2024 [facility] Presumptive E. coli [place] Count >100,000 Presumptive E. coli: REACTION Ampicillin Islt DANIELLA <=2 S Ampicillin+Sulbac Islt DANIELLA <=2 S ceFAZolin Islt DANIELLA <=4 S Cefepime Islt DANIELLA <=0.12 S cefTRIAXone Islt DANIELLA <=0.25 S Ciprofloxacin Islt DANIELLA <=0.25 S Ertapenem Islt DANIELLA <=0.12 S B-Lactamase Extended Susc Islt NEG Gentamicin Islt DANIELLA <=1 S Imipenem Islt DANIELLA <=0.25 S levoFLOXacin Islt DANIELLA <=0.12 S Nitrofurantoin Islt DANIELLA <=16 S Pip+Tazo Islt DANIELLA <=4 S Tobramycin Islt DANIELLA <=1 S TMP SMX Islt DANIELLA <=20 S Normal [facility] Comment on above: Performed By: #### M 100.2200 #### [facility] [address], [address] Office Visit Reporton 2023 Office Visit Report [facility] [address] [place] [address] OFFICE VISIT Date of Service: 05/16/24 MR#: [id number] Acct: [id number] Patient: MARY JANE LLANOS Rep #: [id number] : 1960 Provider: DORINDA Basilio Age/Sex: 63/F [place] [facility] [place] Status: Signed Intake Vital Signs 05/16/24 06:16 Height 1.57 m Weight: 96.162 kg BMI 38.7 BP 136/85 H Blood Pressure Location Lt brachial Position Sitting Pulse 60 Pulse Source Monitor Temp 98.2 F Temp Source Temporal Pulse Oximetry (%) 99 Intake Visit Reasons: Urinary tract infection Chief Complaint: dysuria Allergies No Known Allergies Allergy (Unverified 05/16/24 06:17) Medications ???Medication ???Instructions ???Recorded ???Confirmed ???Type nitrofurantoin macrocrystal 100 mg 100 mg PO Q12H #10 caps 05/16/24 05/16/24 Rx capsule phenazopyridine 100 mg tablet 100 mg PO TID PRN pain 6 doses #6 05/16/24 05/16/24 Rx (Pyridium) tabs simvastatin PO 05/16/24 05/16/24 History HPI HPI Chief Complaint: dysuria Details: MARY JANE LLANOS, is a 63 F who presents to the office today for dysuria. She has had symptoms for about 1 week. She has increased pressure, frequency, and burning with urination. No fevers/chills. No flank/back pain. No N/V/D. Hx multiple UTIs for which she has taken several diff abx in the past. Last UTI was about 3 months ago. No abx use in the past 30 days. ROS Const Constitutional: No chills, fatigue or fever(s) Gastro GI: No nausea/dyspepsia or vomiting Genitourinary-Fema le: Positive for burning urination, painful urination and urinary urgency; No side pain Endo Endocrine: No fatigue Exam Const General: cooperative, healthy appearing, comfortable, no acute distress, well developed and well groomed Nutritional Appearance: overweight Orientation: alert, awake and oriented x3 Resp Effort Inspection: normal respiratory effort, able to speak in complete sentences, symmetric chest movement and no cough Auscultation: Bilateral: Clear to Auscultation Cardio Rate: regular rate Rhythm: regular rhythm Heart Sounds: no murmurs Other: no CVA tenderness Results POC Urinalysis Dip (Clinic) Office Urine Color RONN Last Edit by Anushka Méndez on 05/16/24 06:38 Office Urine Clarity Hazy Last Edit by Anushka Méndez on 05/16/24 06:38 Office Urine Glucose Negative Last Edit by Anushka Méndez on 05/16/24 06:38 Office Urine Ketones Negative Last Edit by Anushka Méndez on 05/16/24 06:38 Off Ur Spec [facility] 1.025 Last Edit by Anushka Méndez on 05/16/24 06:38 Office Urine pH Last Edit by Anushka Méndez on 05/16/24 06:38 Office Urine Bilirubin Negative Last Edit by Anushka Méndez on 05/16/24 06:38 Office Urine Urobilinogen Negative Last Edit by Anushka Méndez on 05/16/24 06:38 Office Urine Blood Large Last Edit by Anushka Méndez on 05/16/24 06:38 Office Urine Blood Hemolyzed Last Edit by Anushka Méndez on 05/16/24 06:38 Office Urine Protein 2+ Last Edit by Anushka Méndez on 05/16/24 06:38 Office Urine Nitrate Negative Last Edit by Anushka Méndez on 05/16/24 06:38 Off Ur Leukocytes Positive Last Edit by Anushka Méndez on 05/16/24 06:38 Coding Level of Care Code Off vis,new,level 3 Diagnoses Urinary tract infection N39.0 Acute UTI N39.0 Assessment and Plan Assessment and Plan (1) Urinary tract infection: (2) Acute UTI: Status: Acute Plan: Acute UTI - hx multiple UTIs. Symptoms and office Urine dip c/w UTI. No abx use in the last 30 days, last UTI was about 3 months ago. Start nitrofurantoin and pyridium, send out urine for culture and sensitivity. pmhx hld on statin Orders: Orders POC Urinalysis Dip (Clinic) Today R39.9 - Unspecified symptoms and signs involving the genitourinary system Medications: New nitrofurantoin macrocrystal must administer with a meal/food 100 mg PO Q12H 10 caps 0RF phenazopyridine (Pyridium) 100 mg PO TID PRN 6 tabs 0RF pain 6 doses 05/16/24 0640 Date Kaleb SETH Cosigner Signature: Date (if applicable) CC: Normal [facility] MA MAMMOGRAM SCREENING BILAT ERAL W/TOMOon 08-06-2023 MA MAMMOGRAM SCREENING BILATERAL W/JETT ORIGINAL FROM: [facility] [employer] [address] [place], [place] [address] PROCEDURE FOR: CANDIDA LLANOS [address] [place] [address] Home: PID#: [id number] Exam#: [id number] : 1960 Age: 62 TO: IRVIN QUEEN D.O. [address] [place] [address] Fax: NO FAX EXAMINATION: SCREENING DIGITAL BILATERAL MAMMOGRAM WITH TOMOSYNTHESIS, 08/04/2023 3:05 pm TECHNIQUE: Screening mammography of the bilateral breasts was performed with tomosynthesis. 2D standard and 3D tomosynthesis combination imaging performed through both breasts in the MLO and CC projection. Computer aided detection was utilized in the interpretation of this exam. COMPARISON: 05/26/2022, 05/13/2020 HISTORY: Breast cancer screening. FINDINGS: BREAST DENSITY: Scattered fibroglandular tissue There are no significant masses or calcifications. IMPRESSION: No mammographic evidence of malignancy. Continued screening with annual mammograms is recommended. Ciera Duckworthck risk calculations, generated with the history provided, report this patient's 10 year risk and lifetime risk for developing breast cancer at 2.6% and 6.1%, respectively. Based on this assessment tool, if the patient's calculated lifetime risk is below 20%, then the patient is considered at average risk for developing breast cancer. If the patient's calculated lifetime risk is at or above 20%, then the patient is considered high risk for developing breast cancer and may be a candidate for supplemental breast MRI screening in addition to annual mammographic screening per the [employer]. BIRADS: MAMMOGRAM BI-RADS: 1: Negative RECALL: 1 year screening RECALL TYPE: mammo LETTER SENT: Normal BI-RADS 1 and 2 Interpreted by: Gera Hunter MD Preliminary Report By: Gera Hunter MD Electronically signed By Gera Hunter MD Dictated Date: 08/06/2023 2:29:33 PM Prelim Date: 08/06/2023 3:04:50 PM Sign Date: 08/06/2023 3:04:50 PM Ordering Provider: IRVIN QUEEN Film Crew Member: JAJA CHERRY RT(R) (M) letter sent: Normal BI-RADS 1 and 2 Mammogram BI-RADS: 1 Negative Normal [facility] ([place]) MALBRon 07-11-2023 U Creatinine 159.2 mg/dL High 28.0-117.0 [facility] ([place]) Comment on above: Performed By: #### V IDH, ADIFF, LIPID, CBC, ANEU, A1C, GFR, CMP #### [address] [address] U Microalb 607 mcg/dL Normal [facility]) Comment on above: Performed By: #### V IDH, ADIFF, LIPID, CBC, ANEU, A1C, GFR, CMP #### [address] [address] U Ratio Alb/Cre 4 mcg/mg Normal 0-30 [facility]) Comment on above: Performed By: #### V IDH, ADIFF, LIPID, CBC, ANEU, A1C, GFR, CMP #### [address] [address] .Auto Diffon 07-08-2023 Basophil, Absolute 0.0 10 3/mcL Normal 0.0-0.2 [facility]) Comment on above: Performed By: #### V IDH, ADIFF, LIPID, CBC, ANEU, A1C, GFR, CMP #### [address] [address] Basophils/100 WBC (Bld) 0.6 % Normal 0.0-2.5 [facility]) Comment on above: Performed By: #### V IDH, ADIFF, LIPID, CBC, ANEU, A1C, GFR, CMP #### [address] [address] Eosinophil, Absolute 0.1 10 3/mcL Normal 0.0-0.4 [facility] ([place]) Comment on above: Performed By: #### V IDH, ADIFF, LIPID, CBC, ANEU, A1C, GFR, CMP #### [address] [address] Eosinophils/100 WBC (Bld) 1.9 % Normal 0.0-7.0 [facility] ([place]) Comment on above: Performed By: #### V IDH, ADIFF, LIPID, CBC, ANEU, A1C, GFR, CMP #### [address] [address] Lymphocyte, Absolute 1.9 10 3/mcL Normal 0.8-3.9 [facility] ([place]) Comment on above: Performed By: #### V IDH, ADIFF, LIPID, CBC, ANEU, A1C, GFR, CMP #### [address] [address] Lymphocytes/100 WBC (Bld) 38.6 % Normal 10.0-50.0 [facility] ([place]) Comment on above: Performed By: #### V IDH, ADIFF, LIPID, CBC, ANEU, A1C, GFR, CMP #### [address] [address] Monocyte, Absolute 0.6 10 3/mcL Normal 0.2-1.0 On license of [facility] ([place]) Comment on above: Performed By: #### V IDH, ADIFF, LIPID, CBC, ANEU, A1C, GFR, CMP #### [address] [address] Monocytes/100 WBC (Bld) 11.5 % Normal 1.7-13.0 [facility] ([place]) Comment on above: Performed By: #### V IDH, ADIFF, LIPID, CBC, ANEU, A1C, GFR, CMP #### [address] [address] Neutrophils/100 WBC (Bld) 47.4 % Normal 37.0-80.0 [facility] ([place]) Comment on above: Performed By: #### V IDH, ADIFF, LIPID, CBC, ANEU, A1C, GFR, CMP #### [address] [address] .GFRon 07-08-2023 GFR Non- 58 ml/min/1.73sqm Normal [facility] ([place]) Comment on above: Result Comment: GFR Population mean for , Non- Americans Ages 20-29 = 116 mL/min/1.73 sq.m. Ages 30-39 = 107 mL/min/1.73 sq.m. Ages 40-49 = 99 mL/min/1.73 sq.m. Ages 50-59 = 93 mL/min/1.73 sq.m. Ages 60-69 = 85 mL/min/1.73 sq.m. Ages 70+ = 75 mL/min/1.73 sq.m. Chronic Kidney Disease: Less than 60 mL/min/1.73 square meters End Stage Renal Disease: Less than 15 mL/min/1.73 square meters Performed By: #### V IDH, ADIFF, LIPID, CBC, ANEU, A1C, GFR, CMP #### [address] [address] GFR 70 ml/min/1.73sqm Normal [facility] ([place]) Comment on above: Result Comment: GFR Population mean for , Non- Americans Ages 20-29 = 116 mL/min/1.73 sq.m. Ages 30-39 = 107 mL/min/1.73 sq.m. Ages 40-49 = 99 mL/min/1.73 sq.m. Ages 50-59 = 93 mL/min/1.73 sq.m. Ages 60-69 = 85 mL/min/1.73 sq.m. Ages 70+ = 75 mL/min/1.73 sq.m. Chronic Kidney Disease: Less than 60 mL/min/1.73 square meters End Stage Renal Disease: Less than 15 mL/min/1.73 square meters Performed By: #### V IDH, ADIFF, LIPID, CBC, ANEU, A1C, GFR, CMP #### [address] [address] .NEUABSon 07-08-2023 Neutrophil, Absolute 2.4 10 3/mcL Low 2.9-6.2 [facility] ([place]) Comment on above: Performed By: #### V IDH, ADIFF, LIPID, CBC, ANEU, A1C, GFR, CMP #### [address] [address] A1Con 07-08-2023 HbA1c (Bld) [Mass fraction] 5.5 % Normal 4.3-6.4 [facility] ([place]) Comment on above: Performed By: #### V IDH, ADIFF, LIPID, CBC, ANEU, A1C, GFR, CMP #### [address] [address] CBCon 07-08-2023 Erythrocyte distribution width (RBC) [Ratio] 12.3 % Normal 11.5-14.5 [facility] ([place]) Comment on above: Performed By: #### V IDH, ADIFF, LIPID, CBC, ANEU, A1C, GFR, CMP #### [place] [id number] Hematocrit (Bld) [Volume fraction] 36.5 % Low 37.0-47.0 [facility] ([place]) Comment on above: Performed By: #### V IDH, ADIFF, LIPID, CBC, ANEU, A1C, GFR, CMP #### [address] [address] Hgb 12.7 G/dL Normal 12.0-16.0 [facility] ([place]) Comment on above: Performed By: #### V IDH, ADIFF, LIPID, CBC, ANEU, A1C, GFR, CMP #### [address] [address] MCH (RBC) [Entitic mass] 29.4 pg Normal 27.0-31.2 [facility] ([place]) Comment on above: Performed By: #### V IDH, ADIFF, LIPID, CBC, ANEU, A1C, GFR, CMP #### [address] [address] MCHC 34.9 G/dL Normal 33.0-37.0 [facility] ([place]) Comment on above: Performed By: #### V IDH, ADIFF, LIPID, CBC, ANEU, A1C, GFR, CMP #### [address] [address] MCV (RBC) [Entitic vol] 84.2 fL Normal 80.0-94.0 [facility] ([place]) Comment on above: Performed By: #### V IDH, ADIFF, LIPID, CBC, ANEU, A1C, GFR, CMP #### [address] [address] Platelet 311 10 3/mcL Normal 130-400 [facility] ([place]) Comment on above: Performed By: #### V IDH, ADIFF, LIPID, CBC, ANEU, A1C, GFR, CMP #### [address] [address] Platelet mean volume (Bld) [Entitic vol] 8.1 fL Normal 7.4-10.4 [facility] ([place]) Comment on above: Performed By: #### V IDH, ADIFF, LIPID, CBC, ANEU, A1C, GFR, CMP #### [address] [address] RBC 4.33 10 6/mcL Normal 4.20-5.40 [facility] ([place]) Comment on above: Performed By: #### V IDH, ADIFF, LIPID, CBC, ANEU, A1C, GFR, CMP #### [address] [address] WBC 5.0 10 3/mcL Normal 4.6-10.8 [facility] ([place] Comment on above: Performed By: #### V IDH, ADIFF, LIPID, CBC, ANEU, A1C, GFR, CMP #### [address] [address] CMPon 07-08-2023 Albumin Level 3.8 G/dL Normal 3.4-4.8 [facility] ([place]) Comment on above: Performed By: #### V IDH, ADIFF, LIPID, CBC, ANEU, A1C, GFR, CMP #### [address] [address] Albumin/Globulin [Mass ratio] 1.2 {ratio} Normal 1.1-2.5 [facility] ([place]) Comment on above: Performed By: #### V IDH, ADIFF, LIPID, CBC, ANEU, A1C, GFR, CMP #### [address] [address] ALP [Catalytic activity/Vol] 65 U/L Normal 40-135 [facility] ([place]) Comment on above: Performed By: #### V IDH, ADIFF, LIPID, CBC, ANEU, A1C, GFR, CMP #### [address] [address] ALT [Catalytic activity/Vol] 25 U/L Normal 14-59 [facility] ([place]) Comment on above: Performed By: #### V IDH, ADIFF, LIPID, CBC, ANEU, A1C, GFR, CMP #### [address] [address] AST [Catalytic activity/Vol] 19 U/L Normal 10-40 [facility] ([place]) Comment on above: Performed By: #### V IDH, ADIFF, LIPID, CBC, ANEU, A1C, GFR, CMP #### [address] [address] Bili Total 0.5 mg/dL Normal 0.2-1.0 [facility] ([place]) Comment on above: Result Comment: Use of this assay is not recommended for patients undergoing treatment with eltrombopag due to the potential for falsely elevated results. Performed By: #### V IDH, ADIFF, LIPID, CBC, ANEU, A1C, GFR, CMP #### [address] [address] BUN/Creatinine Ratio 20 ratio Normal 7-27 On license of [facility] ([place]) Comment on above: Performed By: #### V IDH, ADIFF, LIPID, CBC, ANEU, A1C, GFR, CMP #### [address] [address] Calcium [Mass/Vol] 8.8 mg/dL Normal 8.4-10.2 [facility] ([place]) Comment on above: Performed By: #### V IDH, ADIFF, LIPID, CBC, ANEU, A1C, GFR, CMP #### [address] [address] Chloride [Moles/Vol] 104 mmol/L Normal 98-107 On license of [facility] ([place]) Comment on above: Performed By: #### V IDH, ADIFF, LIPID, CBC, ANEU, A1C, GFR, CMP #### [address] [address] CO2 [Moles/Vol] 28 mmol/L Normal 23-31 [facility] ([place]) Comment on above: Performed By: #### V IDH, ADIFF, LIPID, CBC, ANEU, A1C, GFR, CMP #### [address] [address] Creatinine [Mass/Vol] 0.98 mg/dL Normal 0.55-1.02 [facility] ([place]) Comment on above: Performed By: #### V IDH, ADIFF, LIPID, CBC, ANEU, A1C, GFR, CMP #### [address] [address] Electrolyte Balance 8.0 mEq/L Normal 4.0-15.0 [facility] ([place]) Comment on above: Performed By: #### V IDH, ADIFF, LIPID, CBC, ANEU, A1C, GFR, CMP #### [address] [address] Globulin 3.3 G/dL Normal [facility] ([place]) Comment on above: Performed By: #### V IDH, ADIFF, LIPID, CBC, ANEU, A1C, GFR, CMP #### [address] [address] Glucose [Mass/Vol] 93 mg/dL Normal 80-115 [facility] ([place]) Comment on above: Performed By: #### V IDH, ADIFF, LIPID, CBC, ANEU, A1C, GFR, CMP #### [address] [address] Potassium [Moles/Vol] 4.3 mmol/L Normal 3.5-5.1 [facility] ([place]) Comment on above: Performed By: #### V IDH, ADIFF, LIPID, CBC, ANEU, A1C, GFR, CMP #### [address] [address] Sodium [Moles/Vol] 140 mmol/L Normal 136-145 [facility] ([place]) Comment on above: Performed By: #### V IDH, ADIFF, LIPID, CBC, ANEU, A1C, GFR, CMP #### [place] [address] [place], [place] [address] Total Protein 7.1 G/dL Normal 6.4-8.2 [facility] ([place]) Comment on above: Performed By: #### V IDH, ADIFF, LIPID, CBC, ANEU, A1C, GFR, CMP #### [place] [address] [place], [place] [address] Urea nitrogen [Mass/Vol] 20 mg/dL High 7-18 [facility] ([place]) Comment on above: Performed By: #### V IDH, ADIFF, LIPID, CBC, ANEU, A1C, GFR, CMP #### [address] [address] LABORATORYOrdered By: SYSTEM SYSTEM on 07-08-2023 25-hydroxyvitamin D3 [Mass/Vol] 32.6 ng/mL Invalid Interpretation Code AO ADM SS Comment on above: Interpretive Data: I nterpretive Values Based on Total 25(OH) Vitamin D: Deficient <20 ng/mL Insufficient 20 - <30 ng/mL Sufficient 30-100 ng/mL Albumin BCP dye [Mass/Vol] 3.8 G/dL Invalid Interpretation Code 3.4 - 4.8 G/dL AO ADM SS Albumin/Globulin [Mass ratio] 1.2 {ratio} Invalid Interpretation Code 1.1 - 2.5 ratio AO ADM SS ALP [Catalytic activity/Vol] 65 U/L Invalid Interpretation Code 40 - 135 U/L AO ADM SS ALT With P-5'-P [Catalytic activity/Vol] 25 U/L Invalid Interpretation Code 14 - 59 U/L AO ADM SS AST With P-5'-P [Catalytic activity/Vol] 19 U/L Invalid Interpretation Code 10 - 40 U/L AO ADM SS Basophil, Absolute 0.0 103/mcL Invalid Interpretation Code 0.0 - 0.2 10^3/mcL AO Workflow SS Basophils/100 WBC (Bld) 0.6 % Invalid Interpretation Code 0.0 - 2.5 % AO Workflow SS Bilirubin [Mass/Vol] 0.5 mg/dL Invalid Interpretation Code 0.2 - 1.0 mg/dL AO ADM SS Comment on above: Interpretive Data: U se of this assay is not recommended for patients undergoing treatment with eltrombopag due to the potential for falsely elevated results. Calcium [Mass/Vol] 8.8 mg/dL Invalid Interpretation Code 8.4 - 10.2 mg/dL AO ADM SS Chloride [Moles/Vol] 104 mmol/L Invalid Interpretation Code 98 - 107 mmol/L AO ADM SS CO2 [Moles/Vol] 28 mmol/L Invalid Interpretation Code 23 - 31 mmol/L AO ADM SS Creatinine [Mass/Vol] 0.98 mg/dL Invalid Interpretation Code 0.55 - 1.02 mg/dL AO ADM SS Electrolyte Balance 8.0 mEq/L Invalid Interpretation Code 4.0 - 15.0 mEq/L AO ADM SS Eosinophil, Absolute 0.1 103/mcL Invalid Interpretation Code 0.0 - 0.4 10^3/mcL AO Workflow SS Eosinophils/100 WBC (Bld) 1.9 % Invalid Interpretation Code 0.0 - 7.0 % AO Workflow SS Erythrocyte distribution width (RBC) [Ratio] 12.3 % Invalid Interpretation Code 11.5 - 14.5 % AO Workflow SS GFR/1.73 sq M.predicted among blacks MDRD (S/P/Bld) [Vol rate/Area] 70 ml/min/1.73sqm Invalid Interpretation Code AO Chemistry S Comment on above: Interpretive Data: GFR Population mean for , Non- Americans Ages 20-29 = 116 mL/min/1.73 sq.m. Ages 30-39 = 107 mL/min/1.73 sq.m. Ages 40-49 = 99 mL/min/1.73 sq.m. Ages 50-59 = 93 mL/min/1.73 sq.m. Ages 60-69 = 85 mL/min/1.73 sq.m. Ages 70+ = 75 mL/min/1.73 sq.m. Chronic Kidney Disease: Less than 60 mL/min/1.73 square meters End Stage Renal Disease: Less than 15 mL/min/1.73 square meters GFR/1.73 sq M.predicted among non-blacks MDRD (S/P/Bld) [Vol rate/Area] 58 ml/min/1.73sqm Invalid Interpretation Code AO Chemistry S Comment on above: Interpretive Data: GFR Population mean for , Non- Americans Ages 20-29 = 116 mL/min/1.73 sq.m. Ages 30-39 = 107 mL/min/1.73 sq.m. Ages 40-49 = 99 mL/min/1.73 sq.m. Ages 50-59 = 93 mL/min/1.73 sq.m. Ages 60-69 = 85 mL/min/1.73 sq.m. Ages 70+ = 75 mL/min/1.73 sq.m. Chronic Kidney Disease: Less than 60 mL/min/1.73 square meters End Stage Renal Disease: Less than 15 mL/min/1.73 square meters Globulin 3.3 G/dL Invalid Interpretation Code AO ADM SS Glucose [Mass/Vol] 93 mg/dL Invalid Interpretation Code 80 - 115 mg/dL AO ADM SS HbA1c (Bld) [Mass fraction] 5.5 % Invalid Interpretation Code 4.3 - 6.4 % AO ADM SS Hematocrit (Bld) [Volume fraction] 36.5 % Invalid Interpretation Code 37.0 - 47.0 % AO Workflow SS Hemoglobin (Bld) [Mass/Vol] 12.7 G/dL Invalid Interpretation Code 12.0 - 16.0 G/dL AO Workflow SS Lymphocyte, Absolute 1.9 103/mcL Invalid Interpretation Code 0.8 - 3.9 10^3/mcL AO Workflow SS Lymphocytes/100 WBC (Bld) 38.6 % Invalid Interpretation Code 10.0 - 50.0 % AO Workflow SS MCH (RBC) [Entitic mass] 29.4 pg Invalid Interpretation Code 27.0 - 31.2 pg AO Workflow SS MCHC 34.9 G/dL Invalid Interpretation Code 33.0 - 37.0 G/dL AO Workflow SS MCV (RBC) [Entitic vol] 84.2 fL Invalid Interpretation Code 80.0 - 94.0 fL AO Workflow SS Monocyte, Absolute 0.6 103/mcL Invalid Interpretation Code 0.2 - 1.0 10^3/mcL AO Workflow SS Monocytes/100 WBC (Bld) 11.5 % Invalid Interpretation Code 1.7 - 13.0 % AO Workflow SS Neutrophil, Absolute 2.4 103/mcL Invalid Interpretation Code 2.9 - 6.2 10^3/mcL AO Workflow SS Neutrophils/100 WBC (Bld) 47.4 % Invalid Interpretation Code 37.0 - 80.0 % AO Workflow SS Platelet mean volume (Bld) [Entitic vol] 8.1 fL Invalid Interpretation Code 7.4 - 10.4 fL AO Workflow SS Platelets (Bld) [#/Vol] 311 103/mcL Invalid Interpretation Code 130 - 400 10^3/mcL AO Workflow SS Potassium [Moles/Vol] 4.3 mmol/L Invalid Interpretation Code 3.5 - 5.1 mmol/L AO ADM SS Protein [Mass/Vol] 7.1 G/dL Invalid Interpretation Code 6.4 - 8.2 G/dL AO ADM SS RBC (Bld) [#/Vol] 4.33 106/mcL Invalid Interpretation Code 4.20 - 5.40 10^6/mcL AO Workflow SS Sodium [Moles/Vol] 140 mmol/L Invalid Interpretation Code 136 - 145 mmol/L AO ADM SS Urea nitrogen [Mass/Vol] 20 mg/dL Invalid Interpretation Code 7 - 18 mg/dL AO ADM SS Urea nitrogen/Creatinine [Mass ratio] 20 ratio Invalid Interpretation Code 7 - 27 ratio AO ADM SS WBC (Bld) [#/Vol] 5.0 103/mcL Invalid Interpretation Code 4.6 - 10.8 10^3/mcL AO Workflow SS LABORATORYOrdered By: Lianet Eason on 07-08-2023 Cholesterol [Mass/Vol] 172 mg/dL Invalid Interpretation Code 0 - 200 mg/dL AO ADM SS Comment on above: Interpretive Data: C holesterol Reference Interval: Less than 200 Desirable 200-239 Borderline high risk 240 and above High risk Cholesterol in HDL [Mass/Vol] 36 mg/dL Invalid Interpretation Code 40 - 60 mg/dL AO ADM SS Cholesterol in LDL [Mass/Vol] 111 mg/dL Invalid Interpretation Code 0 - 130 mg/dL AO ADM SS Triglyceride [Mass/Vol] 124 mg/dL Invalid Interpretation Code 0 - 150 mg/dL AO ADM SS Comment on above: Interpretive Data: T riglyceride Reference Interval: Less than 150 Normal 150-199 Borderline high risk 200-499 High risk 500 or higher Very high risk LIPIDon 07-08-2023 Cholesterol [Mass/Vol] 172 mg/dL Normal 0-200 [facility] ([place]) Comment on above: Result Comment: Chol esterol Reference Interval: Less than 200 Desirable 200-239 Borderline high risk 240 and above High risk Performed By: #### V IDH, ADIFF, LIPID, CBC, ANEU, A1C, GFR, CMP #### [address] [address] Cholesterol in HDL [Mass/Vol] 36 mg/dL Low 40-60 [facility] ([place]) Comment on above: Performed By: #### V IDH, ADIFF, LIPID, CBC, ANEU, A1C, GFR, CMP #### [address] [address] Cholesterol in LDL [Mass/Vol] 111 mg/dL Normal 0-130 [facility] ([place]) Comment on above: Performed By: #### V IDH, ADIFF, LIPID, CBC, ANEU, A1C, GFR, CMP #### [address] [address] Triglyceride [Mass/Vol] 124 mg/dL Normal 0-150 [facility] ([place]) Comment on above: Result Comment: Trig lyceride Reference Interval: Less than 150 Normal 150-199 Borderline high risk 200-499 High risk 500 or higher Very high risk Performed By: #### V IDH, ADIFF, LIPID, CBC, ANEU, A1C, GFR, CMP #### [address] [address] VIDHon 07-08-2023 Vit. D 25-Hydroxy 32.6 ng/mL Normal [facility] ([place]) Comment on above: Result Comment: Inte rpretive Values Based on Total 25(OH) Vitamin D: Deficient <20 ng/mL Insufficient 20 - <30 ng/mL Sufficient 30-100 ng/mL Performed By: #### V IDH, ADIFF, LIPID, CBC, ANEU, A1C, GFR, CMP #### [address] [address] LABORATORYOrdered By: Jose J Prabhakar on 05-07-2022 Albumin BCP dye [Mass/Vol] 4.0 G/dL Invalid Interpretation Code 3.4 - 4.8 G/dL AO ADM SS Albumin DL <= 20 mg/L (U) [Mass/Vol] 1114 mcg/dL Invalid Interpretation Code AO ADM SS Albumin/Creatinine DL <= 20 mg/L (U) [Mass ratio] 9 mcg/mg Invalid Interpretation Code 0 - 30 mcg/mg AO ADM SS Albumin/Globulin [Mass ratio] 1.2 {ratio} Invalid Interpretation Code 1.1 - 2.5 ratio AO ADM SS ALP [Catalytic activity/Vol] 64 U/L Invalid Interpretation Code 40 - 135 U/L AO ADM SS ALT With P-5'-P [Catalytic activity/Vol] 31 U/L Invalid Interpretation Code 14 - 59 U/L AO ADM SS AST With P-5'-P [Catalytic activity/Vol] 22 U/L Invalid Interpretation Code 10 - 40 U/L AO ADM SS Bilirubin [Mass/Vol] 0.6 mg/dL Invalid Interpretation Code 0.2 - 1.0 mg/dL AO ADM SS Calcium [Mass/Vol] 9.3 mg/dL Invalid Interpretation Code 8.4 - 10.2 mg/dL AO ADM SS Chloride [Moles/Vol] 104 mmol/L Invalid Interpretation Code 98 - 107 mmol/L AO ADM SS Cholesterol [Mass/Vol] 206 mg/dL Invalid Interpretation Code 0 - 200 mg/dL AO ADM SS Cholesterol in HDL [Mass/Vol] 34 mg/dL Invalid Interpretation Code 40 - 60 mg/dL AO ADM SS Cholesterol in LDL [Mass/Vol] 134 mg/dL Invalid Interpretation Code 0 - 130 mg/dL AO ADM SS CO2 [Moles/Vol] 28 mmol/L Invalid Interpretation Code 23 - 31 mmol/L AO ADM SS Creatinine (U) [Mass/Vol] 130.7 mg/dL Invalid Interpretation Code 28.0 - 117.0 mg/dL AO ADM SS Creatinine [Mass/Vol] 0.99 mg/dL Invalid Interpretation Code 0.55 - 1.02 mg/dL AO ADM SS Electrolyte Balance 7.0 mEq/L Invalid Interpretation Code 4.0 - 15.0 mEq/L AO ADM SS Globulin 3.2 G/dL Invalid Interpretation Code AO ADM SS Glucose [Mass/Vol] 93 mg/dL Invalid Interpretation Code 80 - 115 mg/dL AO ADM SS HbA1c (Bld) [Mass fraction] 5.4 % Invalid Interpretation Code 4.3 - 6.4 % AO ADM SS Potassium [Moles/Vol] 4.8 mmol/L Invalid Interpretation Code 3.5 - 5.1 mmol/L AO ADM SS Protein [Mass/Vol] 7.2 G/dL Invalid Interpretation Code 6.4 - 8.2 G/dL AO ADM SS Sodium [Moles/Vol] 139 mmol/L Invalid Interpretation Code 136 - 145 mmol/L AO ADM SS Triglyceride [Mass/Vol] 192 mg/dL Invalid Interpretation Code 0 - 150 mg/dL AO ADM SS TSH Qn 1.24 m[IU]/L Invalid Interpretation Code 0.36 - 3.74 mcIU/mL AO ADM SS Urea nitrogen [Mass/Vol] 20 mg/dL Invalid Interpretation Code 7 - 18 mg/dL AO ADM SS Urea nitrogen/Creatinine [Mass ratio] 20 ratio Invalid Interpretation Code 7 - 27 ratio AO ADM SS Vit. D 25-Hydroxy 34.1 ng/mL Invalid Interpretation Code AO ADM SS LABORATORYOrdered By: Aide Soriano on 05-07-2022 Basophil, Absolute 0.0 103/mcL Invalid Interpretation Code 0.0 - 0.2 10^3/mcL AO Workflow SS Basophils/100 WBC (Bld) 0.5 % Invalid Interpretation Code 0.0 - 2.5 % AO Workflow SS Eosinophil, Absolute 0.1 103/mcL Invalid Interpretation Code 0.0 - 0.4 10^3/mcL AO Workflow SS Eosinophils/100 WBC (Bld) 1.4 % Invalid Interpretation Code 0.0 - 7.0 % AO Workflow SS Erythrocyte distribution width (RBC) [Ratio] 12.4 % Invalid Interpretation Code 11.5 - 14.5 % AO Workflow SS Hematocrit (Bld) [Volume fraction] 38.0 % Invalid Interpretation Code 37.0 - 47.0 % AO Workflow SS Hemoglobin (Bld) [Mass/Vol] 13.3 G/dL Invalid Interpretation Code 12.0 - 16.0 G/dL AO Workflow SS Lymphocyte, Absolute 2.0 103/mcL Invalid Interpretation Code 0.8 - 3.9 10^3/mcL AO Workflow SS Lymphocytes/100 WBC (Bld) 38.9 % Invalid Interpretation Code 10.0 - 50.0 % AO Workflow SS MCH (RBC) [Entitic mass] 29.3 pg Invalid Interpretation Code 27.0 - 31.2 pg AO Workflow SS MCHC 35.1 G/dL Invalid Interpretation Code 33.0 - 37.0 G/dL AO Workflow SS MCV (RBC) [Entitic vol] 83.7 fL Invalid Interpretation Code 80.0 - 94.0 fL AO Workflow SS Monocyte, Absolute 0.5 103/mcL Invalid Interpretation Code 0.2 - 1.0 10^3/mcL AO Workflow SS Monocytes/100 WBC (Bld) 8.8 % Invalid Interpretation Code 1.7 - 13.0 % AO Workflow SS Neutrophil, Absolute 2.6 103/mcL Invalid Interpretation Code 2.9 - 6.2 10^3/mcL AO Workflow SS Neutrophils/100 WBC (Bld) 50.4 % Invalid Interpretation Code 37.0 - 80.0 % AO Workflow SS Platelet mean volume (Bld) [Entitic vol] 7.5 fL Invalid Interpretation Code 7.4 - 10.4 fL AO Workflow SS Platelets (Bld) [#/Vol] 325 103/mcL Invalid Interpretation Code 130 - 400 10^3/mcL AO Workflow SS RBC (Bld) [#/Vol] 4.54 106/mcL Invalid Interpretation Code 4.20 - 5.40 10^6/mcL AO Workflow SS WBC 5.2 103/mcL Invalid Interpretation Code 4.6 - 10.8 10^3/mcL AO Workflow SS LABORATORYOrdered By: SYSTEM SYSTEM on 05-07-2022 GFR 69 ml/min/1.73sqm Invalid Interpretation Code AO Chemistry S GFR Non- 57 ml/min/1.73sqm Invalid Interpretation Code AO Chemistry S Monocyte distribution width Auto (Bld) [Entitic vol] Not Performed 1 *NA* (05/07/22 10:28 AM) Invalid Interpretation Code 0.00 - 20.00 AO Hematology S Comment on above: Result Comment: MDW testing performed only on adult ER patients between the ages of 18-89 years. LABORATORYOrdered By: Bibi Gillette on 05-07-2022 Hep C Ab Non-Reactive (05/07/22 10:28 AM) Invalid Interpretation Code Non-Reactive AH ADM SS Hep C Ab Int Nonreactive: Samples with a value < 0.80 are considered nonreactive (negative) for antibodies to HCV.A negative test result does not exclude the possibility of exposure to or infection with HCV. HCV antibodies may be undetectable in some stages of the infection and in some clinical conditions. Invalid Interpretation Code AH Chemistry S Encounters Encounter Date Encounter Type Care Provider Facility Start: 06-14-2025 End: 06-18-2025 ambulatory IRVIN QUEEN DO Facility:[facility] Start: 06-14-2025 End: 06-18-2025 Outreach Lab IRVIN QUEEN DO [facility] Start: 06-08-2025 End: 06-08-2025 ambulatory IRVIN QUEEN DO Facility:[facility] Start: 06-08-2025 End: 06-08-2025 Patient encounter procedure IRVIN QUEEN DO [facility] Start: 08-22-2024 End: 08-22-2024 ambulatory FERDINAND VACCARELLI PA-C Facility:[facility] Start: 08-22-2024 End: 08-22-2024 Patient encounter procedure FERDINAND VACCARELLI PA-C [facility] Start: 06-08-2024 End: 06-08-2024 ambulatory FERDINAND VACCARELLI PA-C Facility: Start: 06-08-2024 End: 06-08-2024 Patient encounter procedure FERDINAND VACCARELLI PA-C [facility] Start: 05-16-2024 End: 05-16-2024 ambulatory Kaleb SETH [place] [place]: 05-16-2024 End: 05-16-2024 ambulatory Kaleb SETH Facility:[facility] Start: 08-04-2023 End: 08-04-2023 ambulatory IRVIN QUEEN DO Facility:[facility] Start: 07-08-2023 End: 07-08-2023 ambulatory IRVIN QUEEN DO Facility:[facility] Start: 07-08-2023 End: 07-08-2023 Patient encounter procedure IRVIN QUEEN DO [facility] Start: 07-08-2023 End: 07-08-2023 Well adult monitoring check done IRVIN Espinosa QUEEN DO [facility] Start: 05-26-2022 End: 05-26-2022 Patient encounter procedure IRVIN QUEEN DO [facility] Start: 05-07-2022 End: 05-07-2022 Patient encounter procedure IRVIN Francisca QUEEN DO [facility] Procedures Date Procedure Procedure Detail Performing Clinician Start: 09-16-2000 Operation on gallbladder IRVIN BRET DO Immunizations Immunization Date Immunization Notes Care Provider [facility] 06-14-2025 tetanus and diphther ia toxoids, adsorbed, preservative free, for adult use (5 Lf of tetanus toxoid and 2 Lf of diphtheria toxoid); Translations: [Tenivac] IRVIN QUEEN DO [facility] 06-14-2025 zoster vaccine recombinant; Translations: [Shingrix] IRVIN BRET DO [facility] 06-19-2024 zoster vaccine recombinant; Translations: [Shingrix] FERDINAND SCALES PA-C [facility] 03-27-2021 SARS-CoV-2 (COVID-19 ) [facility] 02-27-2021 SARS-CoV-2 (COVID-19 ) mRNA-1273 vaccine [facility] Comment on above: Result Comment: 2021: [id number] 07-25-2013 tetanus toxoid, reduced diphtheria toxoid, and acellular pertussis vaccine, adsorbed IRVIN BRET DO [facility] 07-29-2010 tetanus and diphther ia toxoids, adsorbed, preservative free, for adult use (5 Lf of tetanus toxoid and 2 Lf of diphtheria toxoid) IRVIN QUEEN DO [facility] Payers Date Payer Category Payer Private Health Insurance [id number] 2024 Self-pay 2023 Unknown [id number] 1960 Unknown [id number] 2.16.8 [id number] 1960 Unknown [id number] 2.16.8 [id number] 1960 Unknown [id number] 2.16.8 [id number] 1960 Unknown [id number] 2.16. [id number] 1960 Unknown [id number] 2.16. [id number] 1960 Unknown [id number] 2.16.8 [id number] Unknown [id number] 2.16.8 [id number] Unknown [id number] 2.16.8 [id number] Social History Date Type Detail Facility Start: 05-25-2019 Tobacco smoking status Never s moked tobacco (finding) [facility] Comment on above: no tobacco smoke exp osure Sex Assigned At Female [facility] Sexual Orientation [facility] Start: 04-11-2019 Sex Female (finding) [facility] Clinical Note 06-15-2025 Note Date & Type Note Facility 06-15-2025 Note . MICRO - Microbiology PROCEDURE: Urine Culture [*1] SOURCE: Urine BODY SITE: COLLECTED DATE/TIME: 06/14/2025 14:24 EDT RECEIVED DATE/TIME: 06/14/2025 19:14 EDT START DATE/TIME: 06/14/2025 19:14 EDT FREE TEXT SOURCE: FINAL REPORTS Final Report [] Verified Date/Time/Personnel: 06/15/2025 14:53 EDT 10,000 - 50,000 cfu/ml Multiple bacterial morphotypes present. Probable Contamination. Suggest recollection if clinically indicated. PRELIMINARY REPORTS Preliminary Report [] Verified Date/Time/Personnel: 06/14/2025 19:59 EDT Specimen received in lab. Performing Locations *1: This test was performed at: [facility], [address] [place] [address], [facility] , [facility] Evaluation + Plan note 07-15-2024 Laboratory Note Date & Type Note Facility 07-15-2024 Evaluation + Plan note Future Scheduled TestsLDL-Cholesterol, Direct 07/15/24Thyroid Stimulating Hormone 07/15/24Free T4 07/15/24A1C Hemoglobin 07/15/24Complete Blood Count 07/15/24Lipid Profile 07/15/24Albumin/Creatinine Ratio, Random Urine 06/08/24Albumin/Creatinine Ratio, Random Urine 07/15/24Complete Metabolic Panel 07/15/24 [facility] Evaluation + Plan note 05-07-2022 Radiology Note Date & Type Note Facility 05-07-2022 Evaluation + Plan note Future Scheduled TestsMA Mammo Screening Bilateral w/ Jett 05/07/22 [facility] Evaluation + Plan note Note Date & Type Note Facility Evaluation + Plan note Future Appointments Appointment Date:07/15/2023 01:30:00 PM Scheduled Provider:IRVIN QUEEN DO Location:[facility] Appointment Type:PC Wellness Annual [facility] Evaluation + Plan note LaboratoryRadiology Note Date & Type Note Facility Evaluation + Plan note Future Scheduled TestsLDL-Cholesterol, Direct 07/15/24Thyroid Stimulating Hormone 07/15/24Free T4 07/15/24A1C Hemoglobin 07/15/24Complete Blood Count 07/15/24Lipid Profile 07/15/24Albumin/Creatinine Ratio, Random Urine 06/08/24Albumin/Creatinine Ratio, Random Urine 07/15/24Complete Metabolic Panel 07/15/24MA Mammo Screening Bilateral w/ Jett 06/08/24 [facility] Evaluation + Plan note Note Date & Type Note Facility Evaluation + Plan note Future Appointments Appointment Date:06/14/2025 09:00:00 AM Scheduled Provider:IRVIN QUEEN DO Location:[facility] Appointment Type: Wellness Annual [facility] Evaluation + Plan note Laboratory Note Date & Type Note Facility Evaluation + Plan note Future Scheduled TestsTSH with Reflex to FT4 06/14/26A1C Hemoglobin 06/14/26Complete Blood Count 06/14/26Lipid Profile 06/14/26Albumin/Creatinine Ratio, Random Urine 06/14/26Complete Metabolic Panel 06/14/26 [facility] Hospital course Narrative Note Date & Type Note Facility Hospital course Narrative No data available for this section [facility] Hospital Discharge instructions Note Date & Type Note Facility Hospital Discharge instructions No data available for this section [facility] Progress note Note Date & Type Note Facility Progress note No data available for this section [facility] Summary Purpose Family History No Family History Records Found Advance Directives No Advanced Directives Records FoundNo Advanced Directives Records FoundNo Advanced Directives Records Found Additional Source Comments Care Team (unrecognized sect ion and content) Care Team Personnel Name: IRVIN QUEEN DO Position: P4 Physician - Primary Care Member Role: Primary Care Physician Address: Address: [address] [place] [address]- [place] Care Team Related Persons Name: ROMI ADENIKE Address: Home [address] [place], [place] [phone] [place] Care Team Personnel Name: IRVIN QUEEN DO Position: P4 Physician - Primary Care Member Role: Primary Care Physician Address: Address: [address] [place] [address]- Care Team Related Persons Name: ADENIKE LLANOS Address: Home [address] [place], [place] [phone] Patient Care team informatio n (unrecognized section and content) Care Team Personnel Name: IRVIN QUEEN DO Position: P4 Physician - Primary Care Member Role: Primary Care Physician Address: Address: [address] [place] [address]- Care Team Related Persons Name: ROMI ADENIKE Address: Home [address] [place], [place] [phone] [place] Care Team Personnel Name: IRVIN QUEEN DO Position: P4 Physician - Primary Care Member Role: Primary Care Physician Address: Address: [address] [place] [address]- Care Team Related Persons Name: ROMIADENIKE Address: Home [address], [place] [phone] [place] Care Team Personnel Name: IRVIN QUEEN DO Position: P4 Physician - Primary Care Member Role: Primary Care Physician Address: Address: [address] [place] [address]- Care Team Related Persons Name: ADENIKE LLANOS Address: Home [address] [place], [place] [phone] [place] Care Team Personnel Name: IRVIN QUEEN DO Position: P4 Physician - Primary Care Member Role: Primary Care Physician Address: [address] [place] [address]- Telecom: Care Team Related Persons Name: ADENIKE LLANOS Care Team Personnel Name: IRVIN QUEEN DO Position: P4 Physician - Primary Care Member Role: Primary Care Physician Address: [address] [place] [address]- Telecom: Care Team Related Persons Name: ADENIKE LLANOS INFORMATION SOURCE (unrecogn ized section and content) DATE CREATED AUTHOR 06/10/2024 [facility] ([place]) DATE CREATED AUTHOR AUTHOR'S ORGANIZ ATION 06/11/2024 [facility] DATE CREATED AUTHOR AUTHOR'S ORGANIZ ATION 06/20/2025 [facility] FOR RECORDS PERTAINING TO PATIENTS WHO ARE OR HAVE BEEN ENROLLED IN A CHEMICAL DEPENDENCY/SUBSTANCEABUSE PROGRAM, SOME INFORMATION MAY BE OMITTED. This clinical summary was aggregated from multiple sources. Caution should be exercised in using it in the provision of clinical care. This summary normalizes information from multiple sources, and as a consequence, information in this document may materially change the coding, format and clinical context of patient data. In addition, data may be omitted in some cases. CLINICAL DECISIONS SHOULD BE BASED ON THE PRIMARY CLINICAL RECORDS. [email or web address] provides no warranty or guarantee of the accuracy or completeness of information in this document.
== END | disposition home or self-care (01) ==
LOC: LABSPEC 16:46
PROVIDERS: Referring Provider Physician Assistant; Visit Provider Physician Assistant
DX: R39.9 Unspecified symptoms and signs involving the genitourinary system (principal)
CPT/HCPCS: 87086; 87088